=== PATIENT | female | born 1995 | race Caucasian/White ===

== ENCOUNTER 2017-07-26 07:29 | Day surgery (SDC) | payer BC ==
[2017-07-24 14:38] VITALS: BMI 30.9
[~2017-07-26 07:29] MED LIST: LACTATED RINGERS 1,000 ML IV SCH
[2017-07-26 08:33] VITALS: TEMP 99.2
[2017-07-26] MEDS ORDERED: LIDOCAINE 1% 20 ML VIAL (10MG/ML) FOR IV START INTRADERMA ONE (08:45)
[2017-07-26] MEDS ORDERED: PROPOFOL 10 MG/ML 20 ML VIAL IV ONE (09:35)
--- NOTE | 2017-07-26 10:05 | P.PCN ---
Date of Procedure: 07/26/17 Procedure(s) Performed: Procedure: Colonoscopy and biopsy. Preoperative diagnosis: Change in bowel habits and rectal bleeding. Postoperative diagnosis: 1. Low-grade internal hemorrhoids without bleeding at the time of the exam, and prominent IC valve, otherwise, exam of the colon and terminal ileum within normal limits. 2. Biopsies obtained from the terminal ileum IC valve and random colon. Preparation: HalfLytely prep. Sedation: Was provided by anesthesia. Brief clinical history: The patient is a 21-year-old female who is referred for this evaluation because of change in bowel habits and intermittent rectal bleeding. There is family history of ulcerative colitis in her cousin. 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 She does have history of hemorrhoids that has intermittently bled. The patient has been having issues with her bowels over the last 2 months with more frequent and looser bowel movements. Procedure: With the patient on her left lateral decubitus position and after informed consent and adequate sedation, the perianal area was inspected and it did not show any fissures or fistulas. There were no masses felt on digital rectal examination. The Olympus CFQ 160L video colonoscope was then inserted in the rectum and the usual fashion and advanced to the cecum. I intubated the ileocecal valve and examined the terminal ileum as well. The IC valve was somewhat prominent and it had polyploid irregularity to its surface which is probably normal for her age. The terminal ileum and colon appeared healthy. I obtained biopsies from the terminal ileum IC valve and randomly from the colon. I retroflexed the endoscope in the rectum before the endoscope was withdrawn. Low-grade internal hemorrhoids were noted and small prominent anal papillae but there was no evidence of bleeding or other pathology. The patient tolerated the procedure well. Plan: The patient was reassured. Will await biopsy results. Discussed dietary measures. She will follow-up with you as planned and I will be happy to see in the office if her symptoms persist.
[2017-07-26 10:14] VITALS: BP 113/76; PULSE 68; RESP 18
== END 2017-07-26 10:38 | disposition home or self-care (01) ==
LOC: ORWHC2ENDO 07:29
DX: K52.89 Other specified noninfective gastroenteritis and colitis (principal); K64.8 Other hemorrhoids; Z88.6 Allergy status to analgesic agent
CPT/HCPCS: 45380; 81025; 88305; J2704